=== PATIENT | female | born 1980 | race Caucasian/White ===

== ENCOUNTER 2020-03-10 06:20 | Emergency (ER) | payer OTHER, MEDICAID ==
[2020-03-10 11:53] LABS: ABSOLUTE BASOPHILS # (AUTO) 0.1 10^3/uL (0.0-0.2); ABSOLUTE EOSINOPHILS # (AUTO) 0.1 10^3/uL (0.0-0.6); ABSOLUTE LYMPHOCYTES (AUTO) 2.8 10^3/uL (0.5-4.7); ABSOLUTE MONOCYTES (AUTO) 0.5 10^3/uL (0.1-1.4); ABSOLUTE NEUT (AUTO) 5.2 10^3/uL (1.7-8.2); BASOPHILS % (AUTO) 0.9 % (0-2); EOSINOPHILS % (AUTO) 0.6 % (0-6); HEMATOCRIT 43.9 % (36.0-47.0); LYMPHOCYTES % (AUTO) 32.7 % (13-45); MEAN CORPUSCULAR HEMOGLOBIN 30.2 pg (27.0-33.4); MEAN CORPUSCULAR HGB CONC 34.2 g/dL (32.0-36.0); MEAN CORPUSCULAR VOLUME 88 fl (80-97); MONOCYTES % (AUTO) 5.7 % (3-13); PLATELET COUNT 346 10^3/uL (150-450); RED BLOOD COUNT 4.97 10^6/uL (3.72-5.28); RED CELL DISTRIBUTION WIDTH 14.1 % (11.5-14.0); SEGMENTED NEUTROPHILS % (AUTO) 60.1 % (42-78); TOTAL CELLS COUNTED % (AUTO) 100 %; WHITE BLOOD COUNT 8.7 10^3/uL (4.0-10.5)
[2020-03-10] MEDS ORDERED: KETOROLAC TROMETHAMINE INJ/PF 30 MG/1 ML SDV IV ONE (12:11)
[2020-03-10 12:12] LABS: ALBUMIN 4.3 g/dL (3.5-5.0); ALKALINE PHOSPHATASE 49 U/L (38-126); ANION GAP 6 (5-19); ASPARTATE AMINO TRANSFERASE 24 U/L (14-36); BILIRUBIN,TOTAL 0.5 mg/dL (0.2-1.3); BLOOD UREA NITROGEN 9 mg/dL (7-20); CALCIUM 9.4 mg/dL (8.4-10.2); CARBON DIOXIDE 26 mmol/L (22-30); CHLORIDE 105 mmol/L (98-107); GLUCOSE 98 mg/dL (75-110); TOTAL PROTEIN 7.1 g/dL (6.3-8.2)
--- NOTE | 2020-03-10 12:17 | ER Document Report ---
ED General - Related Data Home Medications: control <OLGA DILLON - Last Filed: 03/10/20 16:09> <ANGEL CUADRA - Last Filed: 03/11/20 02:24> - General Chief Complaint: Abdominal Pain Stated Complaint: ABDOMINAL PAIN Time Seen by Provider: 03/10/20 11:43 - HPI Notes: Chief complaint: Abdominal pain History of present illness: 39-year-old generally healthy female with no primary care provider presents now for progressively worsening intermittent left lower quadrant abdominal pain which started about 6 months ago. Pain seems to be getting progressively worse and episodes are more frequent. Pain is currently rated 5/10 in intensity. Not affected by eating or bowel movements. Worse when she lies on her left side. She describes this as a cramping left lower quadrant pain that sometimes awakens her from sleep and seems to radiate into the back. She denies associated nausea, vomiting, fever, chills or abnormal vaginal bleeding or vaginal discharge. Patient has had a previous cholecystectomy with no other surgery. Patient is on oral contraceptives which she is taken for a number of years with no other chronic medications. She reports allergies to penicillin. Last menses 5 to 6 weeks ago and she notes that her periods have always been irregular. (OLGA DILLON) - Related Data Allergies/Adverse Reactions: Penicillins Allergy (Intermediate, Verified 09/29/12 09:23) Past Medical History - General Information source: Patient, [facility] Records - Social History Smoking Status: Never Smoker Chew tobacco use (# tins/day): No Frequency of alcohol use: None Drug Abuse: None Past Surgical History: Reports: Hx Cholecystectomy, Hx Tonsillectomy <OLGA DILLON - Last Filed: 03/10/20 16:09> - Social History Family History: Reviewed & Not Pertinent <ANGEL CUADRA - Last Filed: 03/11/20 02:24> Review of Systems <OLGA DILLON - Last Filed: 03/10/20 16:09> - Review of Systems Notes: Constitutional: Negative for fever. HENT: Negative for sore throat. Eyes: Negative for visual changes. Cardiovascular: Negative for chest pain. Respiratory: Negative for shortness of breath. Gastrointestinal: As per HPI. Genitourinary: Negative for dysuria. Musculoskeletal: As per HPI. Skin: Negative for rash. Neurological: Negative for headaches, weakness or numbness. 10 point ROS negative except as marked above and in HPI. (OLGA DILLON) Physical Exam <OLGA DILLON - Last Filed: 03/10/20 16:09> - Vital signs Vitals: Temp Pulse Resp BP Pulse Ox 98.3 F 71 18 133/74 H 100 03/10/20 06:51 03/10/20 06:51 03/10/20 06:51 03/10/20 06:51 03/10/20 06:51 - Notes Notes: GENERAL: Well-developed well-nourished appearing in no acute distress. SKIN: Good turgor no rashes. HEAD: Normocephalic atraumatic. EYES: PERRLA. EOMI. Conjunctivae and sclerae clear. EARS: CANALS AND TMS CLEAR. NOSE: CLEAR. MOUTH: Moist mucosa. Good dentition. No stridor or edema. No drooling. NECK: Supple. No masses or thyromegaly. No adenopathy. Carotids 2+ without bruits. No JVD. BACK: Symmetrical without tenderness. CHEST: Respirations unlabored. Breath sounds clear and symmetrical. HEART: Regular rhythm. No murmur gallop or rub. ABDOMEN: Mild tenderness left lower quadrant. Soft without masses, organomegaly or rebound. Bowel sounds normally active. No bruits. GENITALIA: Deferred. EXTREMITIES: No edema. No calf tenderness. Cap refill less than 1.5 seconds. Dorsalis pedis and posterior tibial pulses 3+ and symmetrical. NEUROLOGICAL: GCS 15. Alert and oriented x3. Normal gait. Fluent speech. Cranial nerves II through XII intact. Sensorimotor and cerebellar normal. Normal tone. PSYCHIATRIC: Appropriate affect. (OLGA DILLON) Course - Laboratory Result Diagrams: 03/10/20 11:36 03/10/20 11:36 <OLGA DILLON - Last Filed: 03/10/20 16:09> - Laboratory Result Diagrams: 03/10/20 11:36 03/10/20 11:36 <ANGEL CUADRA - Last Filed: 03/11/20 02:24> - Re-evaluation Re-evalutation: 03/10/20 16:09 CBC and chemistry profile are unremarkable. Nonsurgical abdomen by exam. Preg effie test negative. 3 red cells per high-powered field on urinalysis. I obtained a noncontrast CT abdomen pelvis looking for possible stone and the only abnormality identified on this study was a small adrenal adenoma on the right side (i.e. the side opposite the patient's symptoms). This is measuring less than 5 Hounsfield units per radiologist and I suspect it is indeed a benign adenoma. I had nonetheless discussed this with patient at some length and explained the necessity of follow-up as an outpatient. In the meantime I am going to order a pelvic ultrasound to exclude possibility of a cyst or other abnormality of the left ovary and causation of present symptoms although her current symptoms are probably of musculoskeletal origin. (OLGA DILLON) 03/10/20 19:16 Care of this patient was turned over to me during my shift. In short, this is a 39-year-old female who has had pain in her left lower back for the last 3 months, intermittently. It seems to be positional, it is worsened when she lays on her side. She states today needed around into her pelvis. Really had not done that before. She did have some nausea associated with it earlier today, but otherwise she denies any other associated symptoms. She has been eating and drinking normally, normal bowel movement yesterday, normal urination. On exam she did not have any reproducible tenderness in her left flank, left lower back, or left lower abdomen. I did review this patient's vital signs, lab work, imaging. No clear etiology is found for her pain. I will start her on a low-dose muscle relaxer. I will refer her onto primary care. She understands that any worsening or change in her symptoms should prompt a return visit. (ANGEL CUADRA) - Vital Signs Vital signs: Temp Pulse Resp BP Pulse Ox 98.2 F 62 18 143/66 H 100 03/10/20 19:45 03/10/20 19:45 03/10/20 19:45 03/10/20 19:45 03/10/20 19:45 - Laboratory Laboratory results interpreted by me: 03/10/20 11:36 RDW 14.1 H Discharge <OLGA DILLON - Last Filed: 03/10/20 16:09> <ANGEL CUADRA - Last Filed: 03/11/20 02:24> - Discharge Clinical Impression: Left lower quadrant abdominal pain, Adenoma of right adrenal gland Condition: Stable Disposition: HOME, SELF-CARE Instructions: Flank Pain ([facility]) Additional Instructions: No clear, emergent cause was found for your pain today. We will try to treat this as musculoskeletal pain with a mild muscle relaxer. Please watch for dizziness and drowsiness with this medication. You should follow-up with primary care in 1 to 2 weeks. If you develop fevers, vomiting, blood in your urine, or any other new or concerning symptoms, please return immediately to the emergency department for evaluation. Prescriptions: Methocarbamol [Robaxin-750] 750 mg PO TID PRN #21 tablet PRN Reason:
[2020-03-10 13:06] LABS: APPEARANCE,URINE CLEAR; BILIRUBIN,URINE NEGATIVE (NEGATIVE); COLOR,URINE YELLOW; GLUCOSE, URINE NEGATIVE (NEGATIVE); KETONES,URINE NEGATIVE (NEGATIVE); LEUKOCYTE ESTERASE,URINE NEGATIVE (NEGATIVE); NITRITE,URINE NEGATIVE (NEGATIVE); PROTEIN,URINE NEGATIVE (NEGATIVE); URINE SPECIFIC GRAVITY 1.012; UROBILINOGEN,URINE NEGATIVE mg/dL (<2.0)
--- NOTE | 2020-03-10 14:17 | RADIOLOGY REPORT (SQ) ---
EXAM DESCRIPTION: CT ABD/PELVIS NO ORAL OR IV IMAGES COMPLETED DATE/TIME: 03/10/2020 1:54 pm REASON FOR STUDY: LLQ pain; r/o kidney stone COMPARISON: None. TECHNIQUE: CT scan of the abdomen and pelvis performed without intravenous or oral contrast. Images reviewed with lung, soft tissue, and bone windows. Reconstructed coronal and sagittal MPR images revi ewed. All images stored on PACS. All CT scanners at this facility use dose modulation, iterative reconstruction, and/or weight based d osing when appropriate to reduce radiation dose to as low as reasonably achievable (ALARA). [facility]: Dose Right [facility]: CareDose [facility]: Dose Right [facility]: Teradose 4D [facility]: [employer] RADIATION DOSE: CT Rad equipment meets quality standard of care and radiation dose reduction techniq ues were employed. CTDIvol: 13.6 mGy. DLP: 809 mGy-cm.mGy. LIMITATIONS: None. FINDINGS: LOWER CHEST: No significant findings. No nodules or infiltrates. NON-CONTRASTED LIVER, SPLEEN, ADRENALS: Liver and spleen are normal. There is a 22 mm right adrenal adenoma. PANCREAS: No masses. No peripancreatic inflammatory changes. GALLBLADDER: Surgically absent. RIGHT KIDNEY AND URETER: No suspicious masses. Assessment limited by lack of IV contrast. No signif icant calcifications. No hydronephrosis or hydroureter. LEFT KIDNEY AND URETER: No suspicious masses. Assessment limited by lack of IV contrast. No signifi cant calcifications. No hydronephrosis or hydroureter. AORTA AND RETROPERITONEUM: No aneurysm. No retroperitoneal masses or adenopathy. BOWEL AND PERITONEAL CAVITY: No obvious masses or inflammatory changes. No free fluid. APPENDIX: Not identified. PELVIS, BLADDER, AND ABDOMINAL WALL:No abnormal masses. No free fluid. Bladder normal. BONES: No significant findings. OTHER: No other significant finding. IMPRESSION: There is a 22 mm right adrenal adenoma with a density of less than 5 Hounsfield units. No other significant finding in the abdomen or pelvis. COMMENT: Quality ID # [id number]: Final reports with documentation of one or more dose reduction techniques (e.g., Automated exposure control, adjustment of the mA and/or kV according to patient size, use of iterative reconstruction technique) TECHNICAL DOCUMENTATION: JOB ID: [id number] 2010 [employer]- All Rights Reserved Reading location - IP/workstation name: [email or web address]
--- NOTE | 2020-03-10 17:24 | RADIOLOGY REPORT (SQ) ---
EXAM DESCRIPTION: U/S NON-OB PELVIS TV W/O DOP IMAGES COMPLETED DATE/TIME: 03/10/2020 5:07 pm REASON FOR STUDY: pelvic pain COMPARISON: None. TECHNIQUE: Dynamic and static grayscale images acquired of the pelvis via transvaginal approach and recorded on PACS. Additional selected color Doppler and spectral images recorded. LIMITATIONS: None. FINDINGS: UTERUS: Contour normal. No mass. ENDOMETRIAL STRIPE: No focal or generalized thickening. No masses. CERVIX: 2.5 cm. There is trace fluid in the endocervical canal. RIGHT OVARY AND DOPPLER: Normal size. No worrisome masses. Normal arterial vascular flow without evid ence for torsion. LEFT OVARY AND DOPPLER: Normal size. No worrisome masses. Normal arterial vascular flow without evide nce for torsion. FREE FLUID: None noted. OTHER: No other significant finding. MEASUREMENTS: UTERUS: 6.7 x 2.8 x 3.8 cm ENDOMETRIAL STRIPE: 2 mm RIGHT OVARY: 1.5 x 2.2 x 1.2 cm LEFT OVARY: 3.8 x 1.7 x 2.7 cm IMPRESSION: NORMAL TRANSVAGINAL PELVIC ULTRASOUND. TECHNICAL DOCUMENTATION: JOB ID: [id number] 2010 [employer]- All Rights Reserved Rev-01/30 Reading location - IP/workstation name: [email or web address]
[2020-03-10 19:45] VITALS: BP 143/66
== END 2020-03-10 19:45 | disposition home or self-care (01) ==
LOC: ER 06:20
DX: D35.01 Benign neoplasm of right adrenal gland (principal); R10.32 Left lower quadrant pain; Z90.49 Acquired absence of other specified parts of digestive tract
CPT/HCPCS: 99284; 96374; 36415; 83690; 85025; 81025; 80053; 81001; 76830; 74176; J1885